=== PATIENT | male | born 1975 | race Caucasian/White ===

== ENCOUNTER 2017-06-15 15:55 | Observation (INO) | payer MEDICAID ==
[~2017-06-15] VITALS: Ht 180.3 cm; Wt 118.3 kg
[2017-06-15 16:42] LABS: HEMATOCRIT 37.9 % (39.2-51.8); HEMOGLOBIN 12.9 g/dL (13.7-18.0); WHITE BLOOD COUNT 8.9 x10^3/uL (3.4-10)
[2017-06-15 16:54] LABS: BLOOD UREA NITROGEN 14 mg/dL (7-18)
[2017-06-15 17:06] LABS: ACETAMINOPHEN < 2 mcg/mL (10-30)
[2017-06-15 18:21] LABS: DAU SCREEN DISCLAIMER
[2017-06-15] MEDS ORDERED: BENZTROPINE 1 MG TABLET PO PRN (19:30)
[2017-06-15] MEDS ORDERED: LORazepam 2 MG/ML, 1ML IM PRN (19:30)
[2017-06-15] MEDS ORDERED: HALOPERIDOL 5 MG/ML IM PRN (19:30)
[2017-06-16 02:53] VITALS: BP 151/105
[2017-06-16 09:17] VITALS: BP 149/103
[2017-06-16 19:14] VITALS: BP 153/100
[2017-06-16] MEDS: TRAZODONE 100MG TABLET PO PRN (20:27)
[2017-06-17 08:00] VITALS: BP 165/110
[2017-06-17 08:52] LABS: BLOOD UREA NITROGEN 16 mg/dL (7-18)
[2017-06-17 19:53] VITALS: BP 154/98
[2017-06-18 07:29] VITALS: BP 168/104
[2017-06-18 12:12] LABS: BLOOD UREA NITROGEN 13 mg/dL (7-18)
[2017-06-18 20:00] VITALS: BP 157/110
[2017-06-18] MEDS: TRAZODONE 100MG TABLET PO PRN (20:24)
[2017-06-19 00:10] VITALS: BP 147/94
[2017-06-19 08:00] VITALS: BP 141/100
[2017-06-19] MEDS: ACETAMINOPHEN 325 MG TABLET PO PRN (18:35)
[2017-06-19 19:39] VITALS: BP 147/94
[2017-06-19] MEDS: TRAZODONE 100MG TABLET PO PRN (21:11)
[2017-06-20] MEDS: ACETAMINOPHEN 325 MG TABLET PO PRN (08:06)
[2017-06-20 09:16] VITALS: BP 146/103
[2017-06-20] MEDS: HEPARIN 5,000 UNITS/ML, 1ML SQ SCH (16:22)
[2017-06-20] MEDS: PSEUDOEPHEDRINE 30 MG TABLET PO PRN (16:35)
[2017-06-20] MEDS ORDERED: BENZTROPINE 1 MG TABLET PO PRN (18:30)
[2017-06-20] MEDS ORDERED: LORazepam 2 MG/ML, 1ML IM PRN (18:30)
[2017-06-20] MEDS ORDERED: HALOPERIDOL 5 MG/ML IM PRN (18:30)
[2017-06-20 19:44] VITALS: BP 125/87
[2017-06-20] MEDS: TRAZODONE 100MG TABLET PO PRN (20:39)
[2017-06-21] MEDS: PSEUDOEPHEDRINE 30 MG TABLET PO PRN ×3 (01:03→13:58)
[2017-06-21] MEDS: HEPARIN 5,000 UNITS/ML, 1ML SQ SCH ×3 (01:05→16:05)
[2017-06-21 08:00] VITALS: BP 149/95
[2017-06-21 19:31] VITALS: BP 132/75
[2017-06-21] MEDS: TRAZODONE 100MG TABLET PO PRN (20:56)
[2017-06-22] MEDS: HEPARIN 5,000 UNITS/ML, 1ML SQ SCH (01:41)
[2017-06-22] MEDS: PSEUDOEPHEDRINE 30 MG TABLET PO PRN (08:58)
[2017-06-22] MEDS: ACETAMINOPHEN 325 MG TABLET PO PRN (08:58)
[2017-06-22 09:00] VITALS: BP 131/101
[2017-06-22] MEDS ORDERED: HEPARIN 5,000 UNITS/ML, 1ML SQ ONE (10:00)
[2017-06-22] MEDS ORDERED: GUAIFENESIN 100 MG/5 ML, 5ML UDC PO PRN (12:30)
[2017-06-22] MEDS ORDERED: LISI-167 PO (17:32)
[2017-06-22] MEDS ORDERED: HEPARIN 5,000 UNITS/ML, 1ML SQ SCH (21:00)
== END 2017-06-22 19:00 ==
LOC: ED 18:54 → EDIP 19:15 → 3E 06-16 02:29
PROVIDERS: ADMIT Internal Medicine; ATTEND Internal Medicine
DX: R45.851 Suicidal ideations (principal); F20.9 Schizophrenia, unspecified; F31.9 Bipolar disorder, unspecified; I10 Essential (primary) hypertension; F12.90 Cannabis use, unspecified, uncomplicated; B18.2 Chronic viral hepatitis C; F33.2 Major depressive disorder, recurrent severe without psychotic features; H40.9 Unspecified glaucoma; F17.210 Nicotine dependence, cigarettes, uncomplicated; Z91.5 Personal history of self-harm; Z86.14 Personal history of Methicillin resistant Staphylococcus aureus infection
CPT/HCPCS: 36415; 80048; 80307; 80329; 82040; 85025; 99285; G0378; J1644; G0480

== ENCOUNTER → 2017-06-23 | Outpatient (CLI) | payer MEDICAID ==
[~2017-06-23] MED LIST: LISI-167 PO
== END | disposition home or self-care (01) ==
LOC: RAD 10:59
PROVIDERS: ATTEND Psychiatry & Neurology Psychiatry
DX: R76.11 Nonspecific reaction to tuberculin skin test without active tuberculosis (principal)
CPT/HCPCS: 71020

== ENCOUNTER 2019-06-09 19:22 | Observation (INO) | payer MEDICAID ==
[~2019-06-09] VITALS: Ht 182.9 cm; Wt 138.9 kg
[2019-06-11 13:10] VITALS: BP 138/95
== END 2019-06-11 18:29 | disposition home or self-care (01) ==
LOC: ED 20:47 → EDIP 21:00 → INTOOBSV 21:00 → 5SO 21:18
PROVIDERS: ADMIT Internal Medicine; ATTEND Internal Medicine
DX: R07.89 Other chest pain (principal); I10 Essential (primary) hypertension; I20.0 Unstable angina; E87.6 Hypokalemia; F12.10 Cannabis abuse, uncomplicated; F15.10 Other stimulant abuse, uncomplicated; F17.210 Nicotine dependence, cigarettes, uncomplicated; F20.9 Schizophrenia, unspecified; F31.9 Bipolar disorder, unspecified; Z88.6 Allergy status to analgesic agent; Z88.5 Allergy status to narcotic agent; E03.9 Hypothyroidism, unspecified; E78.5 Hyperlipidemia, unspecified; Z95.5 Presence of coronary angioplasty implant and graft; I25.2 Old myocardial infarction; Z86.14 Personal history of Methicillin resistant Staphylococcus aureus infection; Z91.19 Patient's noncompliance with other medical treatment and regimen; Z79.899 Other long term (current) drug therapy
CPT/HCPCS: 36415; 71045; 78452; 80053; 80061; 80307; 81001; 83036; 83735; 84439; 84443; 84484; 85025; 93005; 93017; 96372; 99284; A9502; C9898; G0378; J1644; J2785